=== PATIENT | female | born 1985 | race African-American/Black ===

== ENCOUNTER 2016-12-07 20:50 | Emergency (ER) | payer MEDICARE, OTHER ==
[~2016-12-07 20:50] MED LIST: ALBU6.7H INH
[2016-12-07 21:20] VITALS: BP 133/81; PULSE 96; RESP 22; TEMP 102.4; O2SAT 100
[2016-12-07] MEDS ORDERED: LABE200T2 PO (21:26)
[2016-12-07] MEDS ORDERED: ALBU6.7H INH (21:57)
[2016-12-07] MEDS ORDERED: PRED-503 PO (21:57)
[2016-12-07] MEDS ORDERED: DOXY100C PO (21:57)
[2016-12-07] MEDS ORDERED: DOXYCYCLINE HYCLATE 100 MG CAP PO ONE (22:00)
[2016-12-07] MEDS ORDERED: IBUPROFEN 800 MG TAB PO ONE (22:00)
--- NOTE | 2016-12-07 22:02 | PD ---
HPI Chief Complaint: Cold / Flu Symptoms Time Seen by Provider: 21:59 Travel History International Travel<30 days: No Contact w/Intl Traveler<30days: No Traveled to known affect area: No History of Present Illness HPI 31-year-old black female presents to emergency department with a four-day history of fever and chills, headache, ear pain, sore throat, cough, congestion , myalgias, arthralgias and general malaise. She states that her children have been sick with the same illness. She did not get the flu shot. She does have asthma. She denies any asthma medicines currently. She denies any nausea vomiting. No abdominal pain or diarrhea. No dysuria or frequency. No rashes or lesions. PFSH Past Medical History Narrative Medical Asthma, hypertension, bipolar Asthma: Yes Bipolar Disorder: Yes Diminished Hearing: No Hypertension: Yes Respiratory: Yes Immunizations Current: Yes Migraines: Yes (DX AGE 11) Tetanus Vaccination: < 5 Years ?: Not : 4 Para: 4 Tubal Ligation: Yes Past Surgical History Gynecologic Surgery: Yes Social History Alcohol Use: Yes (occasionally) Tobacco Use: No Substance Use: No Allergies-Medications (Allergen,Severity, Reaction): Coded Allergies: Penicillin (Verified Allergy, Severe, Rash, 12/07/16) Reported Meds & Prescriptions Reported Meds & Active Scripts Active Doxycycline Hyclate 100 Mg Cap 100 Mg PO BID Deltasone (Prednisone) 20 Mg Tab 20 Mg PO BID Proventil Hfa 6.7 GM Inh (Albuterol Sulfate) 90 Mcg/Act Aer 2 Puff INH Q6H PRN Reported Labetalol (Labetalol HCl) 200 Mg Tab 200 Mg PO BID Proventil Hfa (Albuterol Sulfate) 6.7 Gm Aero 2 Puff INH Q4HPRN * SHAKE WELL BEFORE USE * Review of Systems Except as stated in HPI: all other systems reviewed are Neg Physical Exam Narrative GENERAL: Well-developed, well-nourished in no acute distress. Nontoxic appearing. HEAD: Normocephalic, atraumatic. EYES: Pupils equal round and reactive. Extraocular motions intact. No scleral icterus. No injection or drainage. ENT: TMs clear without erythema. The external auditory canals clear. Nose: clear . Posterior pharynx is pink and moist. No tonsillar edema or exudate. Uvula midline. Airway patent. NECK: Trachea midline.Supple, nontender, moves head freely. No central bony tenderness or spasm. CARDIOVASCULAR: Regular rate and rhythm without murmurs, gallops, or rubs. RESPIRATORY: Clear to auscultation. Breath sounds equal bilaterally. No wheezes , rales, or rhonchi. GASTROINTESTINAL: Abdomen soft, non-tender, nondistended. No hepato-splenomegaly , or palpable masses. No guarding. EXTREMITIES: No clubbing, cyanosis, or edema. No joint tenderness, effusion, or edema noted. BACK: Nontender without deformity or crepitance. No flank tenderness. Data Data Last Documented VS Vital Signs Date Time Temp Pulse Resp B/P Pulse Ox O2 Delivery O2 Flow Rate FiO2 12/07/16 21:20 102.4 96 22 133/81 100 Orders Doxycycline (Vibramycin) (12/07/16 22:00) Ibuprofen (Motrin) (12/07/16 22:00) [facility] Medical Decision Making Medical Screen Exam Complete: Yes Emergency Medical Condition: Yes Medical Record Reviewed: Yes Differential Diagnosis MDM: High Differential diagnoses: Pneumonia, bronchitis, URI, asthma, RAD, legionnaire's disease, SARS, ARDS, influenza, bronchiolitis, RSV,PE,CHF Narrative Course The patient has symptoms consistent with influenza. She'll be treated for possible secondary bronchitis due to her asthma. Diagnosis Primary Impression: Influenza-like illness Additional Impression: Bronchitis Patient Instructions: General Instructions Departure Forms: Tests/Procedures, Work Release Special Instructions: No work 5 days. Additional Instructions: Rest. Increase fluids. Tylenol and Advil. Robitussin-DM. Doxycycline, prednisone, and albuterol. Followup with your DrAnn Marie in one week. Return to the ER for any problems. Scripts Doxycycline Hyclate 100 Mg Upv509 Mg PO BID #14 CAP Prov:Maryjo Myers DO 12/07/16 Prednisone (Deltasone)20 Mg Tab20 Mg PO BID #10 TAB Prov:aMryjo Myers DO 12/07/16 Albuterol 6.7 GM Inh (Proventil Hfa 6.7 GM Inh)90 Mcg/Act Aer2 Puff INH Q6H PRN (SHORTNESS OF BREATH) #1 INHALER Prov:Maryjo Myers DO 12/07/16 Disposition: 01 DISCHARGE HOME Condition: Stable Jarrod Love Dec 07, 2016 22:02
== END 2016-12-07 22:57 | disposition home or self-care (01) ==
LOC: NEPB 20:50
DX: J11.1 Influenza due to unidentified influenza virus with other respiratory manifestations (principal); J45.909 Unspecified asthma, uncomplicated
CPT/HCPCS: 99283

== ENCOUNTER 2016-12-16 17:58 | Emergency (ER) | payer MEDICARE, OTHER ==
[~2016-12-16] VITALS: Ht 162.6 cm; Wt 100.0 kg
[~2016-12-16 17:58] MED LIST changes: +DOXY100C PO; +LABE200T2 PO; +PRED-503 PO
[2016-12-16 18:00] VITALS: BP 136/76; PULSE 81; RESP 12; TEMP 98.1; O2SAT 99
[2016-12-16] MEDS ORDERED: DEXAMETHASONE SOD PHOS 4 MG/ML VIAL IM ONE (20:30)
--- NOTE | 2016-12-16 20:30 | PD ---
HPI Chief Complaint: Cold / Flu Symptoms Time Seen by Provider: 20:30 Travel History International Travel<30 days: No Contact w/Intl Traveler<30days: No Traveled to known affect area: No History of Present Illness HPI 31-year-old female with history of asthma presents to the emergency department for evaluation of asthma exacerbation. Patient states that she was seen and evaluated a little over a week ago and started on doxycycline. She took that and completed it yesterday. She states she has continued to have a cough, chest tightness, and wheezing. She has had no fever or chills. No nausea, vomiting, diarrhea. Cough is nonproductive. She has no other symptoms to report. PFSH Past Medical History Asthma: Yes Bipolar Disorder: Yes Diminished Hearing: No Hypertension: Yes Respiratory: Yes (ASTHMA) Immunizations Current: Yes Migraines: Yes (DX AGE 11) Tetanus Vaccination: < 5 Years Influenza Vaccination: No ?: Not : 4 Para: 4 Tubal Ligation: Yes Past Surgical History Gynecologic Surgery: Yes Social History Alcohol Use: Yes (occasionally) Tobacco Use: No Substance Use: No Allergies-Medications (Allergen,Severity, Reaction): Coded Allergies: Penicillin (Verified Allergy, Severe, Rash, 12/16/16) Reported Meds & Prescriptions Reported Meds & Active Scripts Active Nebulizer 1 Mis Mis 1 Ea .ROUTE DIRECTED Duoneb (Ipratropium-Albuterol Neb) 0.5-2.5 Mg/3 Ml Neb 1 Nebule INH Q4HR NEB PRN Prednisone 50 Mg Tab 50 Mg PO DAILY 5 Days Deltasone (Prednisone) 20 Mg Tab 20 Mg PO BID Proventil Hfa 6.7 GM Inh (Albuterol Sulfate) 90 Mcg/Act Aer 2 Puff INH Q6H PRN Reported Labetalol (Labetalol HCl) 200 Mg Tab 200 Mg PO BID Review of Systems Except as stated in HPI: all other systems reviewed are Neg Physical Exam Narrative GENERAL: Well-nourished, well-developed female patient, ambulatory and in no acute distress SKIN: Warm and dry. HEAD: Normocephalic. Atraumatic EYES: No scleral icterus. No injection or drainage. ENT: Mucosa pink and moist. No erythema or exudates. No uvular edema. No uvular , palatal, or tonsillar deviation. Airway patent. Nasal turbinates appear normal without nasal blood, purulent drainage or septal hematoma. NECK: Supple, trachea midline. No JVD or lymphadenopathy. CARDIOVASCULAR: Regular rate and rhythm without murmurs, gallops, or rubs. RESPIRATORY: Breath sounds diminished, inspiratory and expiratory wheeze, equal bilaterally. No accessory muscle use. GASTROINTESTINAL: Abdomen soft, non-tender, nondistended. MUSCULOSKELETAL: No cyanosis, or edema. BACK: Nontender without obvious deformity. No CVA tenderness. Data Data Last Documented VS Vital Signs Date Time Temp Pulse Resp B/P Pulse Ox O2 Delivery O2 Flow Rate FiO2 12/16/16 18:00 98.1 81 12 136/76 99 Room Air Orders Chest, Single Ap (12/16/16 20:20) Albuterol-Ipratropium Neb (Duoneb Neb) (12/16/16 20:30) Dexamethasone Inj (Decadron Inj) (12/16/16 20:30) Influenzae A/B Antigen (12/16/16 20:29) Group A Rapid Strep Screen (12/16/16 20:29) Strep Culture (Group A) (12/16/16 20:40) MDM Medical Decision Making Medical Screen Exam Complete: Yes Emergency Medical Condition: Yes Medical Record Reviewed: Yes Differential Diagnosis Asthma exacerbation versus bronchitis versus influenza versus pneumonia Narrative Course 31-year-old female presents to emergency department for evaluation. Patient is given steroids and DuoNeb treatments. Patient's symptoms have improved tremendously. I discussed the patient maintaining physician. We'll treat this as an asthma exacerbation. Patient is encouraged to follow-up with primary care provider and return immediately with any acute worsening of symptoms. 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
--- NOTE | 2016-12-16 21:52 | RADRPT ---
EXAM DATE/TIME: 12/16/2016 20:58 [facility] COMPARISON: CHEST SINGLE AP, June 06, 2013, 11:53. INDICATIONS : Cough and wheezing. MEDICAL HISTORY : asthma. SURGICAL HISTORY : None. ENCOUNTER: Initial ACUITY: 1 day PAIN SCORE: 0/10 LOCATION: Bilateral chest FINDINGS: A single view of the chest demonstrates the lungs to be symmetrically aerated without evidence of mas s, infiltrate or effusion. The cardiomediastinal contours are prominent. Osseous structures are inta ct. CONCLUSION: 1. Cardiomegaly. No acute findings. Jarrod Saba MD on December 16, 2016 at 21:49 Board Certified Radiologist. This report was verified electronically.
[2016-12-16] MEDS: RESP: ALBUTEROL 2.5 MG/IPRATROPIUM 0.5 MG NEB (SCH) INH ×2 (22:30→22:31)
[2016-12-16] MEDS ORDERED: IPRASOL INH (22:41)
[2016-12-16] MEDS ORDERED: PRED50 PO (22:41)
[2016-12-16] MEDS ORDERED: NEBULIZER1 MI1 ×2 (22:41→22:46)
== END 2016-12-16 22:58 | disposition home or self-care (01) ==
LOC: NEPB 17:58
DX: J40 Bronchitis, not specified as acute or chronic (principal); J45.901 Unspecified asthma with (acute) exacerbation; I10 Essential (primary) hypertension
CPT/HCPCS: 71010; 87081; 87804; 87880; 94640; 94664; 96372; 99283; J1100

== ENCOUNTER 2017-05-03 18:18 | Observation (INO) | payer MEDICARE, MEDICAID ==
[~2017-05-03] VITALS: Ht 160 cm; Wt 106.0 kg
[~2017-05-03 18:18] MED LIST changes: -DOXY100C PO; +IPRASOL INH; +NEBULIZER1 MI1; +PRED50 PO
[2017-05-03 18:20] VITALS: BP 179/112; PULSE 86; RESP 20; TEMP 99.3; O2SAT 100
--- NOTE | 2017-05-03 18:27 | PD ---
Physical Exam Time Seen by Provider: 18:26 Narrative 31yo F c/o cheat pain with bilateral arm numbness and tingling x 3 days. + SOB. Hx asthma. Patient seen in triage. VS reviewed. Awaiting bed placement. Data Data Last Documented VS Vital Signs Date Time Temp Pulse Resp B/P Pulse Ox O2 Delivery O2 Flow Rate FiO2 05/03/17 18:20 99.3 86 20 179/112 100 Room Air MDM Supervised Visit with SETH: Kira Hernandez May 03, 2017 18:26
--- NOTE | 2017-05-03 20:25 | PD ---
HPI Chief Complaint: Chest Pain Time Seen by Provider: 20:25 Travel History International Travel<30 days: No Contact w/Intl Traveler<30days: No Traveled to known affect area: No History of Present Illness HPI 31-year-old female with history of hypertension, presents to emergency department for evaluation of a three-day history of left-sided chest pain and intermittent bilateral arm numbness. Patient states that it is a 9 out of 10 and nearly constant whether she is resting or doing activity. Denies any shortness of breath has been mildly nauseous and has had episodes of diaphoresis associated with it. Denies any recent illnesses, fever, or chills. Denies any self cardiac history but states her mother had a heart attack at 35 years old. Patient has no other symptoms to report this time. PFSH Past Medical History Asthma: Yes Bipolar Disorder: Yes Diminished Hearing: No Hypertension: Yes Respiratory: Yes (ASTHMA) Immunizations Current: Yes Migraines: Yes (DX AGE 11) LMP: 04/29/17 : 4 Para: 4 Tubal Ligation: Yes Past Surgical History Gynecologic Surgery: Yes Social History Alcohol Use: Yes (occasionally) Tobacco Use: No Substance Use: No Allergies-Medications (Allergen,Severity, Reaction): Coded Allergies: Penicillin (Verified Allergy, Severe, Rash, 05/03/17) Reported Meds & Prescriptions Reported Meds & Active Scripts Active Duoneb (Ipratropium-Albuterol Neb) 0.5-2.5 Mg/3 Ml Neb 1 Nebule INH Q4HR NEB PRN Proventil Hfa 6.7 GM Inh (Albuterol Sulfate) 90 Mcg/Act Aer 2 Puff INH Q6H PRN Reported Labetalol (Labetalol HCl) 200 Mg Tab 200 Mg PO BID Review of Systems Except as stated in HPI: all other systems reviewed are Neg Physical Exam Narrative GENERAL: Obese female patient, in no acute distress SKIN: Focused skin assessment warm/dry. HEAD: Atraumatic. Normocephalic. EYES: Pupils equal and round. No scleral icterus. No injection or drainage. ENT: No nasal bleeding or discharge. Mucous membranes pink and moist. NECK: Trachea midline. No JVD. CARDIOVASCULAR: Regular rate and rhythm. No murmur appreciated. RESPIRATORY: No accessory muscle use. Clear to auscultation. Breath sounds equal bilaterally. GASTROINTESTINAL: Abdomen soft, non-tender, nondistended. Hepatic and splenic margins not palpable. MUSCULOSKELETAL: No obvious deformities. No clubbing. No cyanosis. No edema. NEUROLOGICAL: Awake and alert. No obvious cranial nerve deficits. Motor grossly within normal limits. Normal speech. PSYCHIATRIC: Appropriate mood and affect; insight and judgment normal. Data Data Last Documented VS Vital Signs Date Time Temp Pulse Resp B/P Pulse Ox O2 Delivery O2 Flow Rate FiO2 05/03/17 21:37 85 16 130/88 97 Room Air 05/03/17 20:35 2 05/03/17 18:20 99.3 Orders Electrocardiogram (05/03/17 ) Electrocardiogram (05/03/17 20:29) Basic Metabolic Panel (Bmp) (05/03/17 20:29) Ckmb (Isoenzyme) Profile (05/03/17 20:29) Complete Blood Count With Diff (05/03/17 20:29) Magnesium (Mg) (05/03/17 20:29) Prothrombin Time / Inr (Pt) (05/03/17 20:29) Act Partial Throm Time (Ptt) (05/03/17 20:29) Troponin I (05/03/17 20:29) Lipase (05/03/17 20:29) Chest, Single Ap (05/03/17 20:29) Ecg Monitoring (05/03/17 20:29) Bilateral Bp Monitoring (05/03/17 20:29) Iv Access Insert/Monitor (05/03/17 20:29) Oximetry (05/03/17 20:29) Oxygen Administration (05/03/17 20:29) Aspirin Chew (Aspirin Chew) (05/03/17 20:30) Sodium Chloride 0.9% Flush (Ns Flush) (05/03/17 20:30) Sodium Chlorid 0.9% 500 Ml Inj (Ns 500 M (05/03/17 20:30) D-Dimer (05/03/17 20:29) CKMB (05/03/17 20:40) CKMB% (05/03/17 20:40) Morphine Inj (Morphine Inj) (05/03/17 21:45) Ondansetron Inj (Zofran Inj) (05/03/17 21:45) Admit Order (Ed Use Only) (05/03/17 21:57) Activity Bed Rest With Brp (05/03/17 21:57) Vital Signs (Adult) Q4H (05/03/17 21:57) Cardiac Rhythm .As Directed (05/03/17 21:57) Notify Dr: Other .PRN (05/03/17 21:57) Notify DrAnn Marie Parameters (05/03/17 21:57) Resp Oxygen Nasal Cannula (05/03/17 ) Diet Npo (05/04/17 Breakfast) Ckmb (Isoenzyme) Profile (05/03/17 23:40) Ckmb (Isoenzyme) Profile (05/04/17 02:40) Troponin I (05/03/17 23:40) Troponin I (05/04/17 02:40) Electrocardiogram (05/03/17 22:00) Electrocardiogram (05/04/17 01:00) ^ Obtain (05/03/17 21:57) Sodium Chloride 0.9% Flush (Ns Flush) (05/04/17 09:00) Acetaminophen (Tylenol) (05/03/17 22:00) Ondansetron Inj (Zofran Inj) (05/03/17 22:00) Nitroglycerin Sl (Nitrostat Sl) (05/03/17 22:00) Reconstructive Dentist / Telemetry TEODORA.Q8H (05/03/17 21:57) Labs Laboratory Tests Test 05/03/17 20:40 White Blood Count 5.9 TH/MM3 Red Blood Count 4.58 MIL/MM3 Hemoglobin 11.2 GM/DL Hematocrit 34.2 % Mean Corpuscular Volume 74.6 FL Mean Corpuscular Hemoglobin 24.4 PG Mean Corpuscular Hemoglobin 32.7 % Concent Red Cell Distribution Width 16.1 % Platelet Count 254 TH/MM3 Mean Platelet Volume 8.6 FL Neutrophils (%) (Auto) 40.0 % Lymphocytes (%) (Auto) 48.1 % Monocytes (%) (Auto) 9.5 % Eosinophils (%) (Auto) 1.9 % Basophils (%) (Auto) 0.5 % Neutrophils # (Auto) 2.4 TH/MM3 Lymphocytes # (Auto) 2.9 TH/MM3 Monocytes # (Auto) 0.6 TH/MM3 Eosinophils # (Auto) 0.1 TH/MM3 Basophils # (Auto) 0.0 TH/MM3 CBC Comment DIFF FINAL Differential Comment Prothrombin Time 10.6 SEC Prothromb Time International 1.0 RATIO Ratio Activated Partial 23.7 SEC Thromboplast Time D-Dimer Quantitative (PE/DVT) 0.34 MG/L FEU Sodium Level 139 MEQ/L Potassium Level 3.6 MEQ/L Chloride Level 106 MEQ/L Carbon Dioxide Level 25.2 MEQ/L Anion Gap 8 MEQ/L Blood Urea Nitrogen 19 MG/DL Creatinine 1.03 MG/DL Estimat Glomerular Filtration 75 ML/MIN Rate Random Glucose 84 MG/DL Calcium Level 8.7 MG/DL Magnesium Level 2.0 MG/DL Total Creatine Kinase 101 U/L Creatine Kinase MB 0.5 NG/ML Troponin I LESS THAN 0.02 NG/ML Lipase 184 U/L MDM Medical Decision Making Medical Screen Exam Complete: Yes Emergency Medical Condition: Yes Medical Record Reviewed: Yes Differential Diagnosis Bronchospasm versus chest wall pain versus ACS versus pleurisy versus pneumonia versus PE Narrative Course 31-year-old female presents for evaluation of chest pain. Patient appears without distress. She is hypertensive here in the emergency department. CBC and BMP are without acute concern. Patient does have some decrease in renal function. D-dimer is 0.34. Troponin is less than 0.02. Discussed the patient my attending physician. With history of hypertension and a strong family history of cardiac disease, patient will be admitted observation to the pain center. Plan is discussed with the patient and she is in agreement with this plan of care.. Diagnosis Primary Impression: Chest pain Qualified Code: R07.9 - Chest pain, unspecified type Admitting Information Admitting Physician Requests: Observation Condition: Stable Oralia Orantes May 03, 2017 20:25
[2017-05-03] MEDS ORDERED: SODIUM CHLORID 0.9% 500 ML INJ 500 ML IV ONE (20:30)
[2017-05-03] MEDS ORDERED: ASPIRIN 81 MG CHEW TAB PO ONE (20:30)
[2017-05-03] MEDS ORDERED: SODIUM CHLORIDE 0.9% FLUSH 10 ML FLUSH IVF PRN (20:30)
[2017-05-03 20:35] VITALS: RESP 24; O2SAT 99
--- NOTE | 2017-05-03 20:43 | RADRPT ---
EXAM DATE/TIME: 05/03/2017 20:41 [facility] COMPARISON: CHEST SINGLE AP, December 16, 2016, 20:58. INDICATIONS : Chest pain MEDICAL HISTORY : Hypertension. Asthma SURGICAL HISTORY : None. ENCOUNTER: Initial ACUITY: 3 days PAIN SCORE: 10/10 LOCATION: Bilateral chest FINDINGS: A single view of the chest demonstrates the lungs to be symmetrically aerated without evidence of mas s, infiltrate or effusion. The cardiomediastinal contours are unremarkable. Osseous structures are intact. CONCLUSION: No acute disease. Tyrone Moya MD on May 03, 2017 at 20:40 Board Certified Radiologist. This report was verified electronically.
[2017-05-03 21:05] LABS: AUTOMATED NEUTROPHIL # 2.4 TH/MM3 (1.8-7.7); BASOPHIL % 0.5 % (0.0-2.0); EOSINOPHIL # 0.1 TH/MM3 (0-0.4); EOSINOPHIL % 1.9 % (0.0-4.0); HEMATOCRIT 34.2 % (35.0-46.0); HEMO FLAGS DIFF FINAL; LYMPH % 48.1 % (9.0-44.0); LYMPHOCYTE # 2.9 TH/MM3 (1.0-4.8); MEAN CELL VOLUME 74.6 FL (80.0-100.0); MEAN CORPUSCULAR HEMOGLOBIN 24.4 PG (27.0-34.0); MEAN CORPUSCULAR HGB CONC 32.7 % (32.0-36.0); MONO % 9.5 % (0.0-8.0); PLATELET COUNT 254 TH/MM3 (150-450); RED BLOOD COUNT 4.58 MIL/MM3 (4.00-5.30); RED CELL DISTRIBUTION WIDTH 16.1 % (11.6-17.2); WHITE BLOOD COUNT 5.9 TH/MM3 (4.0-11.0)
[2017-05-03 21:19] LABS: APTT (PATIENT) 23.7 SEC (24.3-30.1); PROTHROMBIN TIME - PATIENT 10.6 SEC (9.8-11.6)
[2017-05-03 21:21] LABS: ANION GAP 8 MEQ/L (5-15); BICARBONATE 25.2 MEQ/L (21.0-32.0); BLOOD UREA NITROGEN 19 MG/DL (7-18); CHLORIDE 106 MEQ/L (98-107); GLOMERULAR FILTRATION RATE 75 ML/MIN (>89); POTASSIUM 3.6 MEQ/L (3.5-5.1); SODIUM (NA) 139 MEQ/L (136-145)
[2017-05-03 21:26] LABS: CREATINE KINASE 101 U/L (26-192)
[2017-05-03 21:37] VITALS: BP 130/88; PULSE 85; RESP 16; O2SAT 97
[2017-05-03 21:39] LABS: CKMB 0.5 NG/ML (0.5-3.6)
[2017-05-03] MEDS ORDERED: MORPHINE SULFATE 4 MG/ML INJ IV PUSH ONE (21:45)
[2017-05-03] MEDS ORDERED: ONDANSETRON HCL 4 MG/2 ML VIAL IV PUSH ONE (21:45)
[2017-05-03] MEDS ORDERED: NITROGLYCERIN 0.4 MG SL 25 TABS/BTL SL PRN (22:00)
[2017-05-03] MEDS ORDERED: ACETAMINOPHEN 500 MG CPLT PO PRN (22:00)
[2017-05-03] MEDS ORDERED: ONDANSETRON HCL 4 MG/2 ML VIAL IV PRN (22:00)
[2017-05-03 23:33] VITALS: BP 105/74; PULSE 64; RESP 18; TEMP 97.8; O2SAT 100
[2017-05-04] VITALS: PULSE 60
[2017-05-04 00:40] LABS: CREATINE KINASE 72 U/L (26-192)
[2017-05-04 03:07] VITALS: BP 122/82; PULSE 77; RESP 18; TEMP 98; O2SAT 99
[2017-05-04 04:02] LABS: CREATINE KINASE 73 U/L (26-192)
[2017-05-04 04:23] VITALS: O2SAT 99
[2017-05-04 06:49] VITALS: PULSE 60
[2017-05-04 08:33] VITALS: BP 110/76; PULSE 68; RESP 12; TEMP 97.6; O2SAT 97
--- NOTE | 2017-05-04 08:54 | HHI.HP ---
HPI Primary Care Physician PCP in [place] (she cannot remember name of physician) Chief Complaint Chest pain History of Present Illness 31-year-old female with history of asthma and hypertension presents to emergency room for evaluation of chest pain. Onset 3 days ago. Location left inframammary. Characterized as sharp. Pain has been constant waxing and waning in intensity. No radiation of pain although endorses bilateral hand numbness and tingling. Taking a deep breath makes pain worse. Twisting and movement from lying to sitting makes pain worse. Denies any recent illness. No known relieving factors. She was encouraged by her father to come the emergency room for further evaluation of chest pain as she recently had an aunt heart attack. No trauma to area. No recent fall. Endorses situational stress. Review of Systems General: No fatigue, weakness, fever, chills, recent illness, or change in appetite. HEENT: No CHANDLER, no dysphasia. Endorses mild nasal congestion and drainage. CV: Continues to have chest discomfort as stated above. No pressure, palpitations, intermittent leg pain, or dizziness. RESP: No SOB, cough, wheeze, hemoptysis. History of asthma, states only requires rescue inhaler occasionally as her asthma is well-controlled. GI: No nausea, vomiting, bowel changes, diarrhea, constipation, pain, distention , melena, blood in the stool. 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 EXT: No lower leg edema, no paraesthesias MS: No discomfort or change in ROM NEURO: No difficulty with balance or motor/sensory deficits. States she passed out on Wednesday after feeling dizzy. She did not hit her head and lost consciousness momentarily. PSYCH: No anxiety, depression. Endorses situational stress regarding arguing with her child's father. SKIN: No rashes, no concerning lesions Past Family Social History Allergies: Coded Allergies: Penicillin (Verified Allergy, Severe, Rash, 05/03/17) Past Medical History Hypertension, asthma, migraines Past Surgical History Tubal ligation Reported Medications Active Duoneb (Ipratropium-Albuterol Neb) 0.5-2.5 Mg/3 Ml Neb 1 Nebule INH Q4HR NEB PRN Proventil Hfa 6.7 GM Inh (Albuterol Sulfate) 90 Mcg/Act Aer 2 Puff INH Q6H PRN Labetalol (Labetalol HCl) 200 Mg Tab 200 Mg PO BID Active Ordered Medications Current Medications Medications (Trade) Dose Ordered Sig/Ovi Route Start Time Stop Time Status Last Admin (NS Flush) 2 ml UNSCH PRN IVF 05/03/17 20:30 (NS Flush) 2 ml BID IV FLUSH 05/04/17 09:00 (Tylenol) 500 mg Q4H PRN PO 05/03/17 22:00 (Zofran Inj) 4 mg Q6H PRN IV 05/03/17 22:00 (Nitrostat Sl) 0.4 mg Q5M PRN SL 05/03/17 22:00 Family History Mother at age 35 from myocardial infarction. Father cardiac stent in his late 50s. Social History No known diabetes or hyperlipidemia. Known hypertension. Lifelong nonsmoker. Denies any alcohol or illegal drug use. Endorses sedentary lifestyle. Past cardiac testing None Physical Exam Vital Signs Vital Signs Date Time Temp Pulse Resp B/P Pulse Ox O2 Delivery O2 Flow Rate FiO2 05/04/17 08:33 97.6 68 12 110/76 97 05/04/17 06:49 60 05/04/17 04:23 99 21 05/04/17 03:07 98.0 77 18 122/82 99 05/04/17 00:00 60 05/03/17 23:33 97.8 64 18 105/74 100 05/03/17 21:37 85 16 130/88 97 Room Air 05/03/17 20:35 64 24 98 Room Air 05/03/17 20:35 24 99 Nasal Cannula 2 05/03/17 20:35 99 Nasal Cannula 2 05/03/17 18:20 99.3 86 20 179/112 100 Room Air Physical Exam GENERAL: Alert WN, WD, NAD, pleasant, morbidly obese, female HEAD: NC, AT EYES: Sclera clear, conjunctiva without injection, pupils equal and round ENT: Mucous membranes pink and moist CV: RRR, without murmur, rub, gallop, no JVD, S1-S2 no S3-S4. RESP: Clear lungs throughout bilateral, no crackles, wheeze, rhonchi, symmetrical chest rise, nonlabored, able to speak in full sentences ABD: Soft, NT, ND, no masses, positive bowel tones, obese BACK: No CVAT, no scoliosis EXT: Pulses +24, no dependent edema MS: Normal tone 4 extremities, nontender, no obvious deformities, full range of motion NEURO: CN II through CN XII grossly intact, motor strength 5/5, gait WNL PSYCH: A+O 3, pleasant affect, appropriate speech, appropriate mood and affect , insight and judgment SKIN: Normal turgor, normal texture, even hair distribution Laboratory Laboratory Tests Test 05/03/17 05/03/17 05/04/17 20:40 23:05 03:00 White Blood Count 5.9 Red Blood Count 4.58 Hemoglobin 11.2 Hematocrit 34.2 Mean Corpuscular Volume 74.6 Mean Corpuscular Hemoglobin 24.4 Mean Corpuscular Hemoglobin 32.7 Concent Red Cell Distribution Width 16.1 Platelet Count 254 Mean Platelet Volume 8.6 Neutrophils (%) (Auto) 40.0 Lymphocytes (%) (Auto) 48.1 Monocytes (%) (Auto) 9.5 Eosinophils (%) (Auto) 1.9 Basophils (%) (Auto) 0.5 Neutrophils # (Auto) 2.4 Lymphocytes # (Auto) 2.9 Monocytes # (Auto) 0.6 Eosinophils # (Auto) 0.1 Basophils # (Auto) 0.0 CBC Comment DIFF FINAL Differential Comment Prothrombin Time 10.6 Prothromb Time International 1.0 Ratio Activated Partial 23.7 Thromboplast Time D-Dimer Quantitative (PE/DVT) 0.34 Sodium Level 139 Potassium Level 3.6 Chloride Level 106 Carbon Dioxide Level 25.2 Anion Gap 8 Blood Urea Nitrogen 19 Creatinine 1.03 Estimat Glomerular Filtration 75 Rate Random Glucose 84 Calcium Level 8.7 Magnesium Level 2.0 Total Creatine Kinase 101 72 73 Creatine Kinase MB 0.5 Troponin I LESS THAN 0.02 LESS THAN 0.02 LESS THAN 0.02 Lipase 184 Result Diagram: 05/03/17203905/03/172039 Imaging Last Impressions Chest X-Ray 05/03/172028 Signed Impressions: Service Date/Time: Wednesday, May 03, 2017 20:41 - CONCLUSION: No acute disease. Tyrone Moya MD Course EKGs Normal sinus rhythm, normal axis, no ST or T-segment changes Assessment and Plan Assessment and Plan #1 Pericarditis-Colchine 0.6mg BID x 60 days. Instructed to take medication for full 60 days and to follow-up with PCP within a week. Ruled out with 3 sets of EKGs, cardiac enzymes, and monitored overnight. Seen and evaluated by Dr. Karla Ospina. No further cardiac testing required at this time. #2 Musculoskeletal pain-Naproxen 500mg BID x 5 days, followed Naproxen 250mg twice daily x 5 days. Instructed to take medication with food. #3 Hypertensioncontinue labetalol, encourage following a low sodium diet, follow with PCP. #4 Viral syndromeencourage rest, drinking plenty of fluids, and eating a well- balanced diet. Leonie Fields May 04, 2017 08:54
[2017-05-04] MEDS ORDERED: SODIUM CHLORIDE 0.9% FLUSH 10 ML FLUSH IV FLUSH SCH (09:00)
[2017-05-04] MEDS ORDERED: COLC1TAB15 PO (09:26)
[2017-05-04] MEDS ORDERED: NAPR250T PO ×2 (09:27→09:30)
--- NOTE | 2017-05-04 09:27 | HHI.DCPOC ---
Discharge Care Plan Diagnosis: (1) Pericarditis (2) Viral syndrome (3) Musculoskeletal chest pain (4) Situational stress Goals to Promote Your Health * To prevent worsening of your condition and complications * To maintain your health at the optimal level Directions to Meet Your Goals Take your medications as prescribed Follow your dietary instruction Follow activity as directed Keep your appointments as scheduled Take your immunizations and boosters as scheduled If your symptoms worsen call your PCP, if no PCP go to Urgent Care Center or Emergency Room Smoking is Dangerous to Your Health. Avoid second hand smoke Call the 24-hour hour crisis hotline for domestic abuse at [facility] May 04, 2017 09:27
[2017-05-04] MEDS ORDERED: LABETALOL HCL 200 MG TAB PO SCH (10:00)
--- NOTE | 2017-05-04 18:44 | EKG ---
Date Performed: 05/04/2017 Time Performed: 03:14:26 PTAGE: 31 years EKG: Sinus rhythm NORMAL ECG Since PREVIOUS TRACING , no significant change noted PREVIOUS TRACIN05/03/2017 23.42 DOCTOR: Karla Ospina Interpretating Date/Time 05/04/2017 18:43:52
--- NOTE | 2017-05-04 18:45 | EKG ---
Date Performed: 05/03/2017 Time Performed: 23:42:47 PTAGE: 31 years EKG: Sinus rhythm NORMAL ECG Since PREVIOUS TRACING , no significant change noted PREVIOUS TRACIN05/03/2017 18.32 DOCTOR: Karla Ospina Interpretating Date/Time 05/04/2017 18:44:43
--- NOTE | 2017-05-04 18:46 | EKG ---
Date Performed: 05/03/2017 Time Performed: 18:32:13 PTAGE: 31 years EKG: Sinus rhythm NORMAL ECG Since PREVIOUS TRACING , no significant change noted PREVIOUS TRACIN07/30/2012 19.48 DOCTOR: Karla Ospina Interpretating Date/Time 05/04/2017 18:46:06
== END 2017-05-04 12:12 | disposition home or self-care (01) ==
LOC: NEPC 18:18 → NEDA 22:01 → NEPHCDU 22:45
PROVIDERS: ADMIT Internal Medicine Cardiovascular Disease; ATTEND Internal Medicine Cardiovascular Disease
DX: I31.9 Disease of pericardium, unspecified (principal); M79.1 Myalgia; R07.89 Other chest pain; R06.02 Shortness of breath; R11.0 Nausea; R61 Generalized hyperhidrosis; R20.0 Anesthesia of skin; R20.2 Paresthesia of skin; I10 Essential (primary) hypertension; B34.9 Viral infection, unspecified; J45.909 Unspecified asthma, uncomplicated; F31.9 Bipolar disorder, unspecified; E66.01 Morbid (severe) obesity due to excess calories; Z79.899 Other long term (current) drug therapy; Z82.49 Family history of ischemic heart disease and other diseases of the circulatory system
CPT/HCPCS: 71010; 80048; 82550; 82552; 83690; 83735; 84484; 85025; 85379; 85610; 85730; 93005; 96374; 96375; 99285; G0378; J2270; J2405; J7040

== ENCOUNTER 2017-09-02 12:03 | Emergency (ER) | payer MEDICARE, MEDICAID ==
[~2017-09-02] VITALS: Ht 162.6 cm; Wt 107.0 kg
[~2017-09-02 12:03] MED LIST changes: +COLC1TAB15 PO; +NAPR250T PO; -NEBULIZER1 MI1; -PRED-503 PO; -PRED50 PO
[2017-09-02 12:06] VITALS: BP 140/95; PULSE 73; RESP 16; TEMP 98.6; O2SAT 99
[2017-09-02] MEDS ORDERED: SODIUM CHLOR 0.9% 1000 ML INJ 1,000 ML IV ONE ×2 (12:24)
--- NOTE | 2017-09-02 12:26 | PD ---
HPI Chief Complaint: Chest Pain Time Seen by Provider: 12:15 Travel History International Travel<30 days: No Contact w/Intl Traveler<30days: No Traveled to known affect area: No History of Present Illness HPI This patient was examined in the presence of a female nurse. This is a 32-year- old female history of asthma, hypertension, migraines who presents for evaluation. For the past 3 days she has had a migraine headache which she describes as a frontal headache that radiates into the occiput, throbbing, constant, unrelieved with ibuprofen. associated with photophobia and slight nausea. She also endorses some pain inferior to her right breast which started yesterday. She reports that she was feeling anxious and stressed in regards to her social situation and this is when the pain started. She describes it as a sharp pain which is constant, worse with movement. She reports that it has alleviated some today and she denies shortness of breath, cough or congestion, blurred vision, fevers or chills, abdominal pain, vomiting, dysuria, flank pain. Her last menstrual period was 2 weeks ago. She has no other complaints at this time. PFSH Past Medical History Asthma: Yes Bipolar Disorder: Yes Heart Rhythm Problems: No Cardiovascular Problems: Yes (HTN) Congestive Heart Failure: No Diabetes: No Diminished Hearing: No Hypertension: Yes Respiratory: Yes (ASTHMA) Immunizations Current: Yes Migraines: Yes (DX AGE 11) Tetanus Vaccination: Never Vaccinated Influenza Vaccination: No ?: Not LMP: 08/18/17 : 4 Para: 4 Tubal Ligation: Yes Past Surgical History Gynecologic Surgery: Yes Family History Family Myocardial Infarction: Yes (mom side [place]'s) Social History Alcohol Use: Yes (occasionally) Tobacco Use: No Substance Use: No Allergies-Medications (Allergen,Severity, Reaction): Coded Allergies: penicillin G (Unverified Allergy, Severe, Rash, 09/02/17) Reported Meds & Prescriptions Reported Meds & Active Scripts Active Proventil Hfa 6.7 GM Inh (Albuterol Sulfate) 90 Mcg/Act Aer 2 Puff INH Q6H PRN Reported Labetalol (Labetalol HCl) 200 Mg Tab 200 Mg PO BID Review of Systems Except as stated in HPI: all other systems reviewed are Neg Physical Exam Narrative GENERAL: Well-developed well-nourished female in no acute distress SKIN: Warm and dry. HEAD: Atraumatic. Normocephalic. EYES: Pupils equal and round. No scleral icterus. No injection or drainage. ENT: No nasal bleeding or discharge. Mucous membranes pink and moist. NECK: Trachea midline. No JVD. CARDIOVASCULAR: Regular rate and rhythm. No murmur appreciated. RESPIRATORY: No accessory muscle use. Clear to auscultation. Breath sounds equal bilaterally. GASTROINTESTINAL: Abdomen soft, non-tender, nondistended. Hepatic and splenic margins not palpable. MUSCULOSKELETAL: No obvious deformities. There is reproducible tenderness to palpation to the right lower rib cage inferior to the breast. No lower extremity edema. NEUROLOGICAL: Awake and alert. No obvious cranial nerve deficits. Motor grossly within normal limits. Normal speech. PSYCHIATRIC: Appropriate mood and affect; insight and judgment normal. Data Data Last Documented VS Vital Signs Date Time Temp Pulse Resp B/P (MAP) Pulse Ox O2 Delivery O2 Flow Rate FiO2 09/02/17 12:06 98.6 73 16 140/95 (110) 99 Orders Orders Ecg Monitoring (09/02/17 12:24) Iv Access Insert/Monitor (09/02/17 12:24) Oximetry (09/02/17 12:24) Ketorolac Inj (Toradol Inj) (09/02/17 12:30) Diphenhydramine Inj (Benadryl Inj) (09/02/17 12:30) Metoclopramide Inj (Reglan Inj) (09/02/17 12:30) Sodium Chlor 0.9% 1000 Ml Inj (Ns 1000 M (09/02/17 12:24) Electrocardiogram (09/02/17 ) Chest, Single Ap (09/02/17 ) Ed Urine Pregnancytest Poc (09/02/17 12:26) [facility] Medical Decision Making Medical Screen Exam Complete: Yes Emergency Medical Condition: Yes Medical Record Reviewed: Yes Interpretation(s) EKG sinus rhythm with PACs. Differential Diagnosis Migraine without aura, pseudotumor cerebri, tension headache, cluster headache, temporal arteritis, intracranial mass, anxiety, costochondritis, pericarditis, myocarditis, acute coronary syndrome, pulmonary embolism Narrative Course The patient will be placed on ECG monitoring pulse oximetry. A 12-lead EKG and chest x-ray will be obtained. Her chest pain seems to be very atypical-it is inferior to the right breast and reproducible with palpation. Her headache is consistent with previous migraines of which she has a long-standing history of. This will be treated symptomatically with IV fluids, Toradol, Reglan and Benadryl. Upon reexamination the patient feels improved. Her EKG and chest x-ray are unremarkable. She is stable for discharge. Diagnosis Primary Impression: Migraine Additional Impression: Situational stress Additional Instructions: Stay well hydrated and well-nourished. Follow-up with primary care physician. Return for any emergent medical conditions. Med/Other Pt SpecificInfo: No Change to Meds Disposition: 01 DISCHARGE HOME Condition: Stable Gustavo Bowden Sep 02, 2017 12:26
[2017-09-02] MEDS ORDERED: KETOROLAC TROMETHAMINE 30 MG/ML (IVP) VIAL IVP ONE ×2 (12:30)
[2017-09-02] MEDS ORDERED: diphenhydrAMINE HCL 50 MG/ML VIAL IVP ONE ×2 (12:30)
[2017-09-02] MEDS ORDERED: METOCLOPRAMIDE HCL 10 MG/2 ML VIAL IVP ONE ×2 (12:30)
--- NOTE | 2017-09-02 13:00 | RADRPT ---
EXAM DATE/TIME: 09/02/2017 12:53 [facility] COMPARISON: CHEST SINGLE AP, May 03, 2017, 20:41. INDICATIONS : Chest pain., headaches MEDICAL HISTORY : None. SURGICAL HISTORY : None. ENCOUNTER: Initial ACUITY: 3 days PAIN SCORE: 7/10 LOCATION: Bilateral chest FINDINGS: A single view of the chest demonstrates the lungs to be symmetrically aerated without evidence of mas s, infiltrate or effusion. The cardiomediastinal contours are unremarkable. Osseous structures are intact. CONCLUSION: No acute disease. Tyrone Moya MD on September 02, 2017 at 12:58 Board Certified Radiologist. This report was verified electronically.
--- NOTE | 2017-09-02 23:31 | EKG ---
Date Performed: 09/02/2017 Time Performed: 12:36:51 PTAGE: 32 years EKG: Sinus rhythm with ectopic PAC ABNORMAL RHYTHM ECG PREVIOUS TRACING : 05/04/2017 03.14 Compared to prior tracing no significant change DOCTOR: Lg Mathur Interpretating Date/Time 09/02/2017 23:29:43
== END 2017-09-02 14:44 | disposition home or self-care (01) ==
LOC: NEPC 12:03
DX: G43.909 Migraine, unspecified, not intractable, without status migrainosus (principal); Z73.3 Stress, not elsewhere classified
CPT/HCPCS: 71010; 84703; 93005; 96361; 96374; 96375; 99284; J1200; J1885; J2765; J7030

== ENCOUNTER 2017-09-20 14:42 | Emergency (ER) | payer MEDICARE, MEDICAID ==
[~2017-09-20 14:42] MED LIST changes: -COLC1TAB15 PO; -IPRASOL INH; -NAPR250T PO
[2017-09-20 14:45] VITALS: BP 146/96; PULSE 94; RESP 14; TEMP 98.4; O2SAT 100
[2017-09-20] MEDS ORDERED: ORPHENADRINE INJ 60 MG/2 ML AMP IM ONE (15:15)
[2017-09-20] MEDS ORDERED: methylPREDNISolone SOD SUCC 125 MG/2 ML VIAL IV PUSH ONE (15:15)
--- NOTE | 2017-09-20 15:23 | PD ---
HPI Chief Complaint: Back/ Neck Pain or Injury Time Seen by Provider: 15:09 Travel History International Travel<30 days: No Contact w/Intl Traveler<30days: No Traveled to known affect area: No History of Present Illness HPI 32-year-old female presents to the emergency department with thoracic muscular pain radiating into her right arm approximately 2 days. 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 Says that initially the pain wasn't that bad however, it has worsened significantly over the last day or so. Patient says that the radiation of pain goes into her fingertips where she has some tingling and numbness. Her pain increases with movement and is moderate in nature. Patient denies fever, chills, chest pain, shortness of breath. States she has never had this before. Patient denies chronic medical issues. PFSH Past Medical History Asthma: Yes Bipolar Disorder: Yes Heart Rhythm Problems: No Cardiovascular Problems: Yes (HTN) Congestive Heart Failure: No Diabetes: No Diminished Hearing: No Hypertension: Yes Respiratory: Yes (ASTHMA) Immunizations Current: Yes Migraines: Yes (DX AGE 11) : 4 Para: 4 Tubal Ligation: Yes Past Surgical History Gynecologic Surgery: Yes Social History Alcohol Use: Yes (occasionally) Tobacco Use: No Substance Use: No Allergies-Medications (Allergen,Severity, Reaction): Coded Allergies: penicillin G (Unverified Allergy, Severe, Rash, 09/02/17) Reported Meds & Prescriptions Reported Meds & Active Scripts Active Medrol Dosepak (Methylprednisolone) 4 Mg Dspk 4 Mg PO DIRECTED Per Pharmacist direction Robaxin (Methocarbamol) 500 Mg Tab 500 Mg PO TID 5 Days Proventil Hfa 6.7 GM Inh (Albuterol Sulfate) 90 Mcg/Act Aer 2 Puff INH Q6H PRN Reported Labetalol (Labetalol HCl) 200 Mg Tab 200 Mg PO BID Review of Systems Except as stated in HPI: all other systems reviewed are Neg Physical Exam Narrative GENERAL: Well-nourished, well-developed patient in moderate distress SKIN: Focused skin assessment warm/dry. HEAD: Normocephalic. EYES: No scleral icterus. No injection or drainage. NECK: Supple, trachea midline. No JVD or lymphadenopathy. CARDIOVASCULAR: Regular rate and rhythm without murmurs, gallops, or rubs. RESPIRATORY: Breath sounds equal bilaterally. No accessory muscle use. GASTROINTESTINAL: Abdomen soft, non-tender, nondistended. MUSCULOSKELETAL: No cyanosis, or edema. Midthoracic area- TTP of the paraspinous muscles with obvious muscle spasms intention. Patient has difficulty with movements of the thoracic spine secondary to pain. Right arm- neurovascularly intact, limited range of motion secondary to pain and thoracic spine. BACK: Nontender without obvious deformity. No CVA tenderness. Data Data Last Documented VS Vital Signs Date Time Temp Pulse Resp B/P (MAP) Pulse Ox O2 Delivery O2 Flow Rate FiO2 09/20/17 16:30 09/20/17 14:45 98.4 94 14 100 Orders Orders Orphenadrine Inj (Norflex Inj) (09/20/17 15:15) Methylprednisolone So Succ Inj (Solumedr (09/20/17 15:15) Ed Discharge Order (09/20/17 15:37) MDM Medical Decision Making Medical Screen Exam Complete: Yes Emergency Medical Condition: Yes Differential Diagnosis Thoracic spine- muscle spasms versus radiculopathy versus muscle strain Narrative Course 32-year-old female presents to the emergency department with thoracic muscular pain radiating into her right arm approximately 2 days. 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 Says that initially the pain wasn't that bad however, it has worsened significantly over the last day or so. Patient says that the radiation of pain goes into her fingertips where she has some tingling and numbness. Her pain increases with movement and is moderate in nature. Patient denies fever, chills, chest pain, shortness of breath. States she has never had this before. Patient denies chronic medical issues. Vital signs stable Physical exam demonstrates a 32-year-old female in moderate distress. Muscle spasms along thoracic paraspinous muscles with TTP. Neurovascularly intact Solu-Medrol and Norflex administered in the ED. H&P consistent with a muscle spasm with radiculopathy of the thoracic spine. Patient will be discharged on muscle relaxer and steroid. Advised patient to follow up with her primary care physician Diagnosis Primary Impression: Muscle spasm Referrals: Primary Care Physician Additional Instructions: Take medications as prescribed Follow-up with her primary care physician within 2 days If her pain worsens or persists return to the emergency department Scripts Methylprednisolone Dosepak (Medrol Dosepak) 4 Mg Dspk 4 MG PO DIRECTED, #1 DSPK 0 Refills Per Pharmacist direction Prov: Steve Hensley MD 09/20/17 Methocarbamol (Robaxin) 500 Mg Tab 500 MG PO TID for Muscle Spasm for 5 Days, TAB 0 Refills Prov: Steve Hensley MD 09/20/17 Disposition: 01 DISCHARGE HOME Condition: Stable Yasmeen Cunningham Sep 20, 2017 15:23
[2017-09-20] MEDS ORDERED: MEDR4PAK PO (15:37)
[2017-09-20] MEDS ORDERED: ROBA500T PO (15:37)
== END 2017-09-20 16:35 | disposition home or self-care (01) ==
LOC: NEPK 14:42
DX: M62.830 Muscle spasm of back (principal); M54.14 Radiculopathy, thoracic region; I10 Essential (primary) hypertension; Z87.09 Personal history of other diseases of the respiratory system; Z86.59 Personal history of other mental and behavioral disorders; Z86.79 Personal history of other diseases of the circulatory system; Z86.69 Personal history of other diseases of the nervous system and sense organs
CPT/HCPCS: 96372; 96374; 99284; J2360; J2930

== ENCOUNTER 2017-12-13 17:38 | Emergency (ER) | payer OTHER, MEDICARE, MEDICAID ==
[~2017-12-13 17:38] MED LIST changes: +MEDR4PAK PO; +ROBA500T PO
[2017-12-13 17:40] VITALS: BP 145/88; PULSE 76; RESP 16; TEMP 98.5; O2SAT 100
[2017-12-13] MEDS ORDERED: IBUPROFEN 800 MG TAB PO ONE (21:15)
[2017-12-13] MEDS ORDERED: CYCLOBENZAPRINE HCL 10 MG TAB PO ONE (21:15)
[2017-12-13] MEDS ORDERED: IBUP1TAB7 PO (21:16)
[2017-12-13] MEDS ORDERED: CYCL10TA PO (21:16)
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
== END 2017-12-13 21:23 | disposition home or self-care (01) ==
LOC: NEPK 17:38
DX: T14.8XXA Other injury of unspecified body region, initial encounter (principal); M62.838 Other muscle spasm; V43.62XA Car passenger injured in collision with other type car in traffic accident, initial encounter; Y92.488 Other paved roadways as the place of occurrence of the external cause
CPT/HCPCS: 99283

== ENCOUNTER 2018-02-02 17:41 | Emergency (ER) | payer MEDICARE, MEDICAID ==
[~2018-02-02 17:41] MED LIST changes: -ALBU6.7H INH; +CYCL10TA PO; +IBUP1TAB7 PO; -MEDR4PAK PO; -ROBA500T PO
== END 2018-02-02 19:00 | disposition left against medical advice (07) ==
LOC: NED 17:41
DX: R07.9 Chest pain, unspecified (principal)
CPT/HCPCS: 99281

== ENCOUNTER 2018-02-19 11:11 | Emergency (ER) | payer MEDICARE, MEDICAID ==
[2018-02-19 11:24] VITALS: BP 145/94; PULSE 75; RESP 1; TEMP 98.8; O2SAT 98
[2018-02-19] MEDS ORDERED: TRAZ50TA12 PO (11:36)
[2018-02-19] MEDS ORDERED: CITA20TA4 PO (11:36)
[2018-02-19 12:18] LABS: BACTERIA, URINE MOD /hpf; BILIRUBIN, URINE NEG (NEG); BLOOD, URINE NEG (NEG); GLUCOSE,URINE NEG (NEG); KETONE, URINE NEG (NEG); MUCUS URINE FEW /lpf (OCC); NITRITE,URINE NEG (NEG); PH, URINE 5.5 (5.0-8.5); SQUAMOUS EPITHELIAL CELL URINE 10 /hpf (0-5); URINE COLOR YELLOW (YELLW/STRAW); URINE LEUKOCYTE ESTERASE NEG (NEG)
[2018-02-19] MEDS ORDERED: METR-1 PO (12:41)
--- NOTE | 2018-02-19 12:42 | PD ---
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 She denies any abdominal pain nausea vomiting diarrhea constipation or fevers. States symptoms are mild, for the past few days, context as above, associated signs and symptoms as above PFSH Past Medical History Asthma: Yes Bipolar Disorder: Yes Depression: Yes Heart Rhythm Problems: No Cardiovascular Problems: Yes (HTN) Congestive Heart Failure: No Diabetes: No Diminished Hearing: No Hypertension: Yes Psychiatric: Yes Respiratory: Yes (ASTHMA) Immunizations Current: Yes Migraines: Yes (DX AGE 11) Tetanus Vaccination: < 5 Years ?: Not LMP: 02/06/18 : 4 Para: 4 Tubal Ligation: Yes Past Surgical History Gynecologic Surgery: Yes Family History Family Myocardial Infarction: Yes (mom side [place]'s) Social History Alcohol Use: Yes (occasionally) Tobacco Use: No Substance Use: No Allergies-Medications (Allergen,Severity, Reaction): Coded Allergies: penicillin G (Unverified Allergy, Severe, Rash, 02/19/18) Reported Meds & Prescriptions Reported Meds & Active Scripts Active Flagyl (Metronidazole) 500 Mg Tab 500 Mg PO BID 7 Days Reported Citalopram (Citalopram Hydrobromide) 20 Mg Tab 20 Mg PO DAILY Trazodone (Trazodone HCl) 50 Mg Tab 50 Mg PO HS Labetalol (Labetalol HCl) 200 Mg Tab 200 Mg PO BID Review of Systems Except as stated in HPI: all other systems reviewed are Neg Physical Exam Narrative GENERAL: Well-developed well-nourished no obvious distress SKIN: Focused skin assessment warm/dry. HEAD: Atraumatic. Normocephalic. EYES: Pupils equal and round. No scleral icterus. No injection or drainage. ENT: No nasal bleeding or discharge. Mucous membranes pink and moist. NECK: Trachea midline. No JVD. CARDIOVASCULAR: Regular rate and rhythm. No murmur appreciated. RESPIRATORY: No accessory muscle use. Clear to auscultation. Breath sounds equal bilaterally. GASTROINTESTINAL: Abdomen soft, non-tender, nondistended. Hepatic and splenic margins not palpable. GENITOURINARY: Exam performed with female nurse seismic survey assistant present all times, scant discharge in the vaginal vault which is white, consistent with BV, no cervical motion tenderness no bimanual tenderness no lesion peer MUSCULOSKELETAL: No obvious deformities. No clubbing. No cyanosis. No edema. NEUROLOGICAL: Awake and alert. No obvious cranial nerve deficits. Motor grossly within normal limits. Normal speech. PSYCHIATRIC: Appropriate mood and affect; insight and judgment normal. Data Data Last Documented VS Vital Signs Date Time Temp Pulse Resp B/P (MAP) Pulse Ox O2 Delivery O2 Flow Rate FiO2 02/19/18 14:06 92 20 135/95 (108) 98 02/19/18 11:24 98.8 Orders Orders Urinalysis - C+S If Indicated (02/19/18 11:26) Ed Urine Pregnancytest Poc (02/19/18 11:26) Wet Prep Profile (02/19/18 11:34) Gc And Chlamydia Pcr (02/19/18 11:34) Urine Culture (02/19/18 11:40) Ceftriaxone Inj (Rocephin Inj) (02/19/18 12:45) Lidocaine 1% Inj (50 Ml) (Xylocaine 1% I (02/19/18 12:45) Metronidazole (Flagyl) (02/19/18 12:45) Ed Discharge Order (02/19/18 12:42) Lidocaine 1% Inj (Xylocaine 1% Inj) (02/19/18 13:00) Lidocaine 1% Inj (Xylocaine 1% Inj) (02/19/18 13:15) Labs Laboratory Tests Test 02/19/18 11:40 02/19/18 12:30 Urine Color YELLOW Urine Turbidity HAZY Urine pH 5.5 Urine Specific [place] 1.025 Urine Protein NEG mg/dL Urine Glucose (UA) NEG mg/dL Urine Ketones NEG mg/dL Urine Occult Blood NEG Urine Nitrite NEG Urine Bilirubin NEG Urine Urobilinogen LESS THAN 2.0 MG/DL Urine Leukocyte Esterase NEG Urine RBC 1 /hpf Urine WBC 1 /hpf Urine Squamous Epithelial Cells 10 /hpf Urine Bacteria MOD /hpf Urine Mucus FEW /lpf Microscopic Urinalysis Comment CULTURE INDICATED Clue Cells (Wet Prep) NONE SEEN Vaginal Trichomonas (Wet Prep) NONE SEEN Vaginal Yeast (Wet Prep) NONE SEEN Chlamydia trachomatis DNA (PCR) NOT DETECTED Neisseria gonorrhoeae DNA (PCR) NOT DETECTED MDM Medical Decision Making Medical Screen Exam Complete: Yes Emergency Medical Condition: Yes Differential Diagnosis BV, CV, STD exposure. Narrative Course The testing and she is agreeable. Antibiotics given, monitored for an allergic reaction has not had any. 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 Discussed return to ED criteria. Discussed follow-up with the health department for further testing HIV hepatitis and syphilis. She is stable for discharge Diagnosis Primary Impression: Vaginal discharge Med/Other Pt SpecificInfo: Prescription(s) given Scripts Metronidazole (Flagyl) 500 Mg Tab 500 MG PO BID for Infection for 7 Days, #14 TAB 0 Refills Prov: Jtain Cooper MD 02/19/18 Disposition: 01 DISCHARGE HOME Condition: Stable Jatin Cooper MD Feb 19, 2018 12:42
[2018-02-19] MEDS ORDERED: LIDOCAINE HCL 1% 50 ML VIAL XX ONE (12:45)
[2018-02-19] MEDS ORDERED: cefTRIAXone 250 MG VIAL IM ONE (12:45)
[2018-02-19] MEDS ORDERED: metroNIDAZOLE 500 MG TAB PO ONE (12:45)
[2018-02-19] MEDS ORDERED: LIDOCAINE HCL 1% 30 ML VIAL OTHER ONE (13:00)
[2018-02-19] MEDS ORDERED: LIDOCAINE HCL 1% 20 ML VIAL OTHER ONE (13:15)
[2018-02-19 14:06] VITALS: BP 135/95
== END 2018-02-19 14:13 | disposition home or self-care (01) ==
LOC: NEPD 11:11
DX: N89.8 Other specified noninflammatory disorders of vagina (principal); F31.9 Bipolar disorder, unspecified; I10 Essential (primary) hypertension; R82.71 Bacteriuria
CPT/HCPCS: 81001; 84703; 87086; 87210; 87491; 87591; 96372; 99284; J0696